=== PATIENT | male | born 1995 | race Caucasian/White ===

== ENCOUNTER 2017-01-17 23:21 | Emergency (ER) | payer BC ==
[2017-01-18] MEDS ORDERED: LIDOCAINE 2% VISCOUS SOLN 20 ML UDCUP PO ONE (00:06)
--- NOTE | 2017-01-18 00:06 | ER Document Report ---
HPI - HPI Pain Level: 4 Notes: Patient is a 21-year-old male who presents the ED complaining of tooth pain to # 19 and possible small abscess to the gum. Patient states that he does have poor dentition and just got insurance so he was looking to get scheduled with a dentist, but the pain got worse. Patient states that he has been given both penicillin and clindamycin in the past for similar issues. He denies any drug allergies or other significant medical history. Patient admits to smoking but denies any IV drug use. Patient states that he is still able to eat and drink without any difficulties. The pain does not radiate. Denies any headache, fever, neck pain, hoarseness, drooling, URI, sore throat, chest pain, palpitations, syncope, cough, shortness of breath, wheeze, dyspnea, abdominal pain, nausea/vomiting/diarrhea, urinary retention, dysuria, hematuria, or rash. - ROS Notes: REVIEW OF SYSTEMS: CONSTITUTIONAL : Denies fever, chills, or sweats. Denies recent illness. EENT: see hpi. no eye complaints CARDIOVASCULAR: Denies chest pain. Denies palpitations or racing or irregular heart beat. Denies ankle edema. RESPIRATORY: Denies cough, cold, or chest congestion. Denies shortness of breath, difficulty breathing, or wheezing. GASTROINTESTINAL: Denies abdominal pain or distention. Denies nausea, vomiting , or diarrhea. Denies blood in vomitus, stools, or per rectum. Denies black, tarry stools. Denies constipation. GENITOURINARY: Denies difficulty urinating, painful urination, burning, frequency, blood in urine, or discharge. MUSCULOSKELETAL: Denies back or neck pain or stiffness. Denies joint pain or swelling. SKIN: Denies rash, lesions or sores. NEUROLOGICAL: Denies confusion or altered mental status. Denies passing out or loss of consciousness. Denies dizziness or lightheadedness. Denies headache. Denies weakness or paralysis or loss of use of either side. Denies problems with gait or speech. Denies sensory loss, numbness, or tingling. ALL OTHER SYSTEMS REVIEWED AND NEGATIVE. Dictation was performed using [employer] voice recognition software - DERM Skin Color: Normal Past Medical History - Social History Smoking Status: Never Smoker Family History: Reviewed & Not Pertinent Patient has suicidal ideation: No Patient has homicidal ideation: No Renal/ Medical History: Denies: Hx Peritoneal Dialysis Vertical Provider Document - CONSTITUTIONAL Agree With Documented VS: Yes Notes: PHYSICAL EXAMINATION: GENERAL: Well-appearing, well-nourished and in no acute distress. HEAD: Atraumatic, normocephalic. EYES: Pupils equal round and reactive to light, extraocular movements intact, sclera anicteric, conjunctiva are normal. ENT: EAC clear b/l. TM's intact b/l without erythema, fluid, or perforation. Nares patent and without discharge. oropharynx clear without exudates. No tonsilar hypertrophy or erythema. Moist mucous membranes. No sinus tenderness. Uvula midline. No palatine shift. No tongue protrusion. No respiratory compromise. Mouth: Very poor dentition. + decay and mild gingivitis. + small abscess noted w/o discharge. No facial swelling. + tenderness to tooth #18. NECK: Normal range of motion, supple without lymphadenopathy. No rigidity/ meningismus. LUNGS: Breath sounds clear to auscultation bilaterally and equal. No wheezes rales or rhonchi. HEART: Regular rate and rhythm without murmurs, rubs, gallops. NEUROLOGICAL: Cranial nerves grossly intact. Normal speech, normal gait. Normal sensory, motor exams PSYCH: Normal mood, normal affect. SKIN: Warm, Dry, normal turgor, no rashes or lesions noted. - INFECTION CONTROL TRAVEL OUTSIDE OF THE [place] IN LAST 30 DAYS: No - RESPIRATORY O2 Sat by Pulse Oximetry: 90 Course - Re-evaluation Re-evalutation: 01/18/17 00:31 Patient is an afebrile, well-hydrated, 21-year-old male who presents to the ED with a dental abscess and toothache. Vitals are stable. PE is otherwise unremarkable. An 18-gauge needle was utilized to release the abscess. Viscous lidocaine was also used for anesthesia. Low suspicion for any meningitis, sepsis, peritonsillar/pharyngeal abscess, respiratory compromise, Jonathan's, temporal arteritis, or other emergent systemic condition at this time. Patient is aware this condition can change from initial presentation and he needs to monitor symptoms closely. Patient was in a decent amount of discomfort after the procedure so I did order him 1 tablet of oxycodone, and will send him home with a prescription for the viscous lidocaine as well as clindamycin to take as directed. Advised patient that I usually do not do any narcotics for dental pain. Conservative measures otherwise for symptoms. Call to schedule an appointment with a dentist for further evaluation and management. Recheck with your PCM this week as well. Return to the ED with any worsening/concerning symptoms otherwise as reviewed in discharge. Patient is in agreement. - Vital Signs Vital signs: Temp Pulse Resp BP Pulse Ox 98.2 F 77 18 150/76 H 90 L 01/17/17 23:22 01/17/17 23:22 01/17/17 23:22 01/17/17 23:22 01/17/17 23:22 Procedures - Incision and Drainage Left Face Time completed: 00:20 Type: Simple Anesthetic type: Other - topical lidocaine mL's of anesthetic: 1 Incision Method: Incision made with needle - 18g Amount/type of drainage: scant purulent/bloody Notes: 01/18/17 00:19 pt tolerated procedure well, no complications Discharge - Discharge Clinical Impression: Dental abscess, Toothache Condition: Stable Disposition: HOME, SELF-CARE Instructions: [facility], Clindamycin ([facility]), Dentist, Toothache ( [facility]) Additional Instructions: [place]asper and floss twice daily Maintain fluid intake Take antibiotics as directed Mouthwash, salt water gargles, peroxide rinse as needed Tylenol/ibuprofen as needed Recheck with PCM this week Call today/tomorrow and schedule an appointment with your dentist for further evaluation Return to the ED with any worsening symptoms and/or development of fever, headache, facial swelling, swelling of lips/tongue/throat, trouble swallowing, drooling, hoarseness, neck pain/stiffness, chest pain, palpitations, syncope, shortness of breath, trouble breathing, abdominal pain, n/v/d, numbness/tingling , or other worsening symptoms that are concerning to you. Prescriptions: Clindamycin HCl [Cleocin 300 mg Capsule] 300 mg PO TID #30 capsule Forms: Elevated Blood Pressure Referrals: [facility] [Provider Group] - Follow up as needed
[2017-01-18 00:24] VITALS: BP 136/78
[2017-01-18] MEDS ORDERED: OXYCODONE HCL IR 5 MG TABLET PO ONE (00:30)
== END 2017-01-18 00:44 | disposition home or self-care (01) ==
LOC: ER 23:21
DX: K04.7 Periapical abscess without sinus (principal); K02.9 Dental caries, unspecified; K05.10 Chronic gingivitis, plaque induced; K08.89 Other specified disorders of teeth and supporting structures
CPT/HCPCS: 99282; 41800; J3490